=== PATIENT | female | born 1965 | race Caucasian/White ===

== ENCOUNTER → 2017-08-31 | Outpatient (CLI) | payer OTHER | END | disposition home or self-care (01) | LOC: YCFC.O 11:29 | PROVIDERS: ATTEND Nurse Practitioner Family | DX: E78.2 Mixed hyperlipidemia (principal); E11.9 Type 2 diabetes mellitus without complications; I10 Essential (primary) hypertension ==

== ENCOUNTER → 2017-09-11 | Outpatient (CLI) | payer OTHER ==
--- NOTE | 2017-09-12 06:23 | RAD ---
Procedure: XR HIP 2 OR MORE VIEWS Exam Date: 09/11/2017 12:00 AM CDT Ordering Provider: SAMI Cyr Clinical Indication: PAIN IN LEFT HIP Comparison: None FINDINGS: There is no fracture or dislocation. No significant degenerative changes. Visualized portions of the hemipelvis are normal. There is no lytic or sclerotic lesion. No suspicious calcifications. Impression: 1. Negative exam of the left hip. Electronically signed by: Prasanna Velásquez MD 09/12/2017 6:22 AM CDT
--- NOTE | 2017-09-12 08:42 | US ---
Procedure: Right upper quadrant ultrasound Exam Date: 09/11/2017 12:00 AM CDT Ordering Provider: SAMI Cyr Clinical Indication: HEPATOMEGALY Comparison: None Technique: Real-time ultrasonography was obtained over the right upper quadrant and apparel trimmings sales representative images were recorded. Findings: Innumerable gallstones are seen within the gallbladder lumen. There is no gallbladder wall thickening or pericholecystic fluid. Negative sonographic De Jesus sign. The gallbladder is normal in size and contour. The extrahepatic common duct is normal in size measuring five mm. The liver is normal in size and contour. There is normal echogenicity throughout the liver. There is no hepatic mass. There is no intrahepatic ductal dilatation. Visualized pancreas is unremarkable. There is no ascites. Evaluation of the right kidney demonstrates no hydronephrosis. Impression: Innumerable gallstones without evidence of acute cholecystitis. Otherwise, unremarkable right upper quadrant ultrasound. Electronically signed by: Prasanna Velásquez MD 09/12/2017 8:41 AM CDT
== END | disposition home or self-care (01) ==
LOC: YCFC.O 12:36
PROVIDERS: ATTEND Nurse Practitioner Family
DX: M25.552 Pain in left hip (principal); R94.5 Abnormal results of liver function studies

== ENCOUNTER 2017-09-21 06:22 | Day surgery (SDC) | payer OTHER ==
--- NOTE | 2017-09-19 10:25 | RAD ---
EXAM DESCRIPTION: Chest,2 Views CLINICAL HISTORY: surg 09/21/17 COMPARISON: July 28, 2016 TECHNIQUE: PA/lateral FINDINGS: The lungs are well expanded and clear. No infiltrates or effusions or masses are noted. The heart is normal in size and shape with no evidence of vascular congestion. The shereen and mediastinum demonstrate normal contours. The bony spine and chest wall is normal for age in appearance. IMPRESSION: Normal chest, two views Electronically signed by: Renan Penn MD 09/19/2017 10:24 AM CDT
[2017-09-21] MEDS ORDERED: SODIUM CHL 0.9% 100ML MINI-BAG 100 ML IVPB ONE (06:56)
[2017-09-21] MEDS ORDERED: ceFAZolin SODIUM 1 GM VIAL ONE (06:56)
[2017-09-21] MEDS ORDERED: LACTATED RINGERS 1,000 ML ONE (06:56)
[2017-09-21] MEDS ORDERED: raNITIdine HCL INJ 25 MG/ML VIAL ONE (07:00)
[2017-09-21] MEDS ORDERED: LABETALOL INJ 5 MG/ML VIAL ONE (07:00)
[2017-09-21] MEDS ORDERED: DEXAMETHASONE INJ 10 MG/ML VIAL ONE (07:00)
[2017-09-21] MEDS ORDERED: METOCLOPRAMIDE HCL INJ 10 MG/2 ML VIAL ONE (07:00)
[2017-09-21] MEDS ORDERED: LIDOCAINE 1% 10 ML VIAL INJ ONE (07:00)
[2017-09-21] MEDS ORDERED: PROPOFOL 200 MG/20 ML VIAL IV ONE (07:00)
[2017-09-21] MEDS ORDERED: HEPARIN SODIUM (PORCINE) 10,000 UNITS/ML VIAL ONE (07:45)
[2017-09-21] MEDS ORDERED: ROCURONIUM BROMIDE 10 MG/ML VIAL ONE (08:15)
[2017-09-21] MEDS ORDERED: fentaNYL CITRATE INJ 50 MCG/ML AMP ONE (08:15)
[2017-09-21] MEDS ORDERED: MIDAZOLAM INJ 2 MG/2 ML VIAL ONE (08:15)
[2017-09-21] MEDS ORDERED: HYDROmorphone HCL INJ 2 MG/ML VIAL ONE (08:18)
[2017-09-21] MEDS ORDERED: BUPIVACAINE 0.5% W/EPI 30 ML VIAL INJ ONE (08:20)
[2017-09-21] MEDS ORDERED: SODIUM CHLORIDE 0.9% 50 ML VIAL ONE (08:20)
[2017-09-21] MEDS ORDERED: SUGAMMADEX SODIUM 200 MG/2 ML VIAL IV ONE (09:53)
[2017-09-21] MEDS ORDERED: INSULIN LISPRO 100 UNITS/ML PEN SUBCU ONE (10:42)
--- NOTE | 2017-09-21 10:48 | OP ---
DATE OF PROCEDURE: 09/21/17 PREOPERATIVE DIAGNOSIS: 1. Symptomatic cholelithiasis. POSTOPERATIVE DIAGNOSIS: 1. Symptomatic cholelithiasis. 2. Chronic cholecystitis. 3. Fatty infiltration of the liver. PROCEDURE: 1. Laparoscopic cholecystectomy with intraoperative cholangiography. 2. Wedge biopsy, right lobe of the liver. SURGEON: Tank Bradshaw MD. FLEXOGRAPHIC PRESS HELPER: None. ANESTHESIA: Local infiltration of 0.25% Marcaine with epinephrine and general endotracheal anesthesia. INDICATION: The patient is a 52-year-old female with a fatty food intolerance, nausea, vomiting, bloating, sonographically diagnosed cholelithiasis. The patient was brought to the Surgical [facility] today for cholecystectomy after the risks, benefits and alternatives to the procedure were discussed and accepted. The family was informed intraoperatively that it appeared she had fatty infiltration of the liver and the wedge biopsy of the liver would be performed and they agreed with the procedure. FINDINGS: As noted, the liver appeared to have fatty infiltration. The gallbladder contained multiple stones and there were adhesions to the gallbladder from the omentum. Intraoperative cholangiography revealed free flow into the duodenum with no filling defects or strictures noted. There was noted to be a very short cystic duct, but plenty for clipping. No other pathology was identified. DESCRIPTION OF PROCEDURE: After adequate general endotracheal anesthesia was obtained, the patient was prepped and draped in the usual sterile manner. Surgical time-out was taken. The infraumbilical area was infiltrated with local anesthesia. A curvilinear incision was fashioned and carried down through the subcutaneous tissue to the midline fascia. Traction sutures were placed on either side of the midline. A small incision was made in the midline fascia and the peritoneum was opened bluntly. Martínez trocar was introduced under direct vision into the abdominal cavity and fixed in place with the 20 mL balloon. CO2 was then insufflated until a pressure of 12 mmHg was reached and the abdomen was tympanitic in all four quadrants. When this was done, the laparoscope was introduced. The abdomen was inspected with the previously noted findings. The upper abdominal ports were placed under direct vision in the usual manner. The gallbladder was grasped, retracted anteriorly and laterally. Adhesions to the gallbladder were taken down using electrocautery and blunt dissection. The neck of the gallbladder was retracted laterally. The triangle of Calot was then explored with the cystic duct and cystic artery identified and isolated. The cystic duct was hemoclipped once proximally. The cystic artery was hemoclipped twice proximally and once distally. A small incision was made in the cystic duct. The cholangiogram catheter was introduced through a separate stab wound in the right upper quadrant, introduced into the cystic duct and clipped in place. Cholangiograms were then taken using fluoroscopy which revealed free flow into the duodenum with no filling defects or strictures noted. When this was done, the cystic duct catheter was removed. The cystic duct was hemoclipped three times distally and divided between the hemoclips. The cystic artery was divided. A second vessel was identified, clipped and divided. The gallbladder was then dissected free from the gallbladder bed of the liver without difficulty and removed from the infraumbilical port site in the usual manner under direct vision. When this was done, a wedge biopsy of the right lobe of the liver was performed with sharp scissors. Hemostasis was obtained electrocautery turned up to 50. There was some difficulty obtaining hemostasis, but by the end of the case, it was quite good. The subhepatic space and subphrenic space were irrigated copiously with saline. The candy hepatis was inspected and no bleeding or bile leak was identified. The liver bed and the wedge biopsy site were both inspected and there was no bleeding there. The upper abdominal ports were removed under direct vision. There was bleeding from both the lateral ports and this was controlled with electrocautery. When hemostasis was noted to be adequate, the CO2, the laparoscope and the infraumbilical port were removed. The infraumbilical port site fascia was approximated with a single [id number] suture of 0 Vicryl. Subcutaneous tissue was irrigated with saline. Skin edges were approximated with 4-0 Vicryl subcuticular sutures, benzoin and Steri- Strips. Sterile dressings were applied. The patient was awakened and taken to the Recovery Room in good and stable condition. Estimated blood loss was approximately 75 mL. All sponge, needle and instrument counts were correct. #[id number] [facility]
[2017-09-21] MEDS ORDERED: SODIUM CHLORIDE 0.9% 250ML 250 ML ONE (11:04)
[2017-09-21] MEDS ORDERED: ONDANSETRON INJ 4 MG/2 ML VIAL ONE (11:43)
[2017-09-21 12:57] VITALS: O2SAT 97
[2017-09-21 13:09] VITALS: BP 164/79; TEMP 96
== END 2017-09-21 12:35 | disposition home or self-care (01) ==
LOC: AMB 06:22
PROVIDERS: ATTEND Surgery
DX: K80.10 Calculus of gallbladder with chronic cholecystitis without obstruction (principal); K76.0 Fatty (change of) liver, not elsewhere classified; E11.9 Type 2 diabetes mellitus without complications; E78.5 Hyperlipidemia, unspecified; I10 Essential (primary) hypertension; F32.9 Major depressive disorder, single episode, unspecified; E66.9 Obesity, unspecified; Z79.899 Other long term (current) drug therapy
CPT/HCPCS: 00790; 36415; 36416; 47379; 47563; 71020; 76000; 80053; 81001; 82948; 85025; 87086; 93005; A4216; J0690; J1100; J1170; J1644; J1815; J2250; J2405; J2765; J2780; J3010; J3490; J7050; J7120

== ENCOUNTER → 2017-10-04 | Outpatient (CLI) | payer OTHER ==
--- NOTE | 2017-10-05 13:09 | MAM ---
EXAM DESCRIPTION: Screening Mammogram,Bilateral: Digital Mammography CLINICAL HISTORY: 52 years Female SCREENING . No complaints. Remote family history of ovarian cancer. Postmenopausal. No HRT. COMPARISON: 2-D digital screening bilateral study 08/04/2013.. No prior reports available. TECHNIQUE: Bilateral CC and MLO projection full-field images, 2-D digital screening mammographic technique. CAD was utilized. FINDINGS: The breast parenchymal density pattern is: Heterogeneously dense breast tissue, which may obscure small masses. No skin thickening or nipple retraction bilateral solitary microcalcifications. Bilateral intramammary lymph nodes. Bilateral axillary lymph nodes. No focal, stellate mass or density, focal asymmetry , and no suspicious microcalcifications bilaterally. Stable mammograms compared to the prior study, taking into account differences in mammographic technique. IMPRESSION: BI-RADS CATEGORY: 2 - BENIGN FINDINGS. FOLLOW UP: Routine digital bilateral screening, one year interval from September 2017. Written communication explaining the IMPRESSION and follow-up, will be mailed to the patient and referring health care provider. According to the [employer], yearly mammograms are recommended starting at age 40 and continuing as long as a woman is in good health. Any breast change noted on a breast self-exam should be reported promptly to the patient's healthcare provider. Breast MRI is recommended for women with an approximately 20-25% or greater lifetime risk of breast cancer, including women with a strong family history of breast or ovarian cancer and women who have been treated for Hodgkin's disease. A negative mammographic report should not delay tissue diagnosis in patients with significant clinical history or physical findings. Extremely dense breast tissue limits the sensitivity of digital mammography. Electronically signed by: Hardeep Penny MD 10/05/2017 1:[address] [facility]
== END | disposition home or self-care (01) ==
LOC: MAMMO 14:18
PROVIDERS: ATTEND Nurse Practitioner Family
DX: Z12.31 Encounter for screening mammogram for malignant neoplasm of breast (principal)

== ENCOUNTER 2018-06-24 20:54 | Emergency (ER) | payer OTHER ==
--- NOTE | 2018-06-24 21:08 | ED.PDOC ---
History of Present Illness - General Chief Complaint: Eye Problems Time Seen by Provider: 06/24/18 21:03 Source: patient, Vital Signs reviewed Additional Information: 53 YEAR OLD DIABETIC PRESENTS WITH PAINFUL LEFT EYE SYMPTOMS STARTED YESTERDAY NO TRAUMA NO LOSS OF VISION SHE HAS TEARING PAIN IS MOSTLY ON THE EYE LIDS THAT IS VERY RED TENDER ON PALPATION GLOBE APPEARS NORMAL - History of Present Illness Timing/Duration: 24 hours Severity: mild Improving Factors: nothing Worsening Factors: nothing Associated Symptoms: denies symptoms Allergies/Adverse Reactions: Allergies NO KNOWN ALLERGY Allergy (Verified 06/24/18 21:09) Home Medications: Ambulatory Orders Cyclobenzaprine HCl [Flexeril] 10 mg PO TID PRN 09/19/17 Liraglutide [Victoza] 1.2 mg SC DAILY 09/19/17 Lisinopril 20 mg PO DAILY@0700 09/19/17 Meloxicam [Mobic] 7.5 mg PO BEDTIME 09/19/17 Clindamycin HCl [Cleocin] 300 mg PO Q6H #40 cap 06/24/18 Review of Systems - Review of Systems Constitutional: States: no symptoms reported EENTM: States: see HPI Respiratory: States: no symptoms reported Cardiology: States: no symptoms reported Gastrointestinal/Abdominal: States: no symptoms reported Genitourinary: States: no symptoms reported Past Medical History (General) - Patient Medical History Hx Congestive Heart Failure: No Hx Diabetes: Yes - Did not take Diabetes Medication on day prior to surg Hx MRSA: No Family Medical History - Family History Mother Family History: Unknown Physical Exam - Physical Exam General Appearance: Agitated, Alert, Comfortable Ears, Nose, Throat: hearing grossly normal, normal ENT inspection, normal pharynx, other - RIGHT EYE NORMAL LEFT EYE BOTH UPPER AND LOWER LIDS ARE RED ERYTHEMATOUS AND TENDER CONJUNCTIVA AND CORNEA NORMAL SEFERINO EXTERNAL OCCULAR MOVEMENTS ARE PAINFREE Neck: non-tender, full range of motion, supple Respiratory: chest non-tender, lungs clear, normal breath sounds, no respiratory distress Cardiovascular/Chest: normal peripheral pulses, regular rate, rhythm, no edema Departure - Departure Clinical Impression: Periorbital cellulitis of left eye Time of Disposition: 21:20 Disposition: Discharge to Home or Self Care Condition: Good Departure Forms: ED Discharge - Pt. Copy, Patient Portal Self Enrollment Instructions: DI for Eye Pain Referrals: Roberta Cyr NP [Primary Care Provider] - 1-2 Weeks Prescriptions: Clindamycin HCl [Cleocin] 300 mg PO Q6H #40 cap Home Medications: Ambulatory Orders Cyclobenzaprine HCl [Flexeril] 10 mg PO TID PRN 09/19/17 Liraglutide [Victoza] 1.2 mg SC DAILY 09/19/17 Lisinopril 20 mg PO DAILY@0700 09/19/17 Meloxicam [Mobic] 7.5 mg PO BEDTIME 09/19/17 Clindamycin HCl [Cleocin] 300 mg PO Q6H #40 cap 06/24/18 Additional Instructions: PLEASE FOLLOW UP WITH CP IN THE MORNING TO REEVALUATION
[2018-06-24 21:09] VITALS: BP 172/92; TEMP 98.4; O2SAT 96
[2018-06-24] MEDS ORDERED: cefTRIAXone SODIUM 1 GM VIAL IM ONE (21:12)
[2018-06-24] MEDS ORDERED: HYDROcodone 7.5MG/APAP 325MG 1 EA TAB PO ONE (21:13)
[2018-06-24] MEDS ORDERED: LIDOCAINE 1% 2 ML VIAL INJ ONE (21:21)
== END 2018-06-24 21:38 | disposition home or self-care (01) ==
LOC: ER 20:54
DX: L03.213 Periorbital cellulitis (principal); E11.9 Type 2 diabetes mellitus without complications; Z79.899 Other long term (current) drug therapy

== ENCOUNTER 2019-05-08 15:20 | Observation (INO) | payer OTHER ==
[2019-05-08] MEDS ORDERED: ONDANSETRON ODT 8 MG TAB SL ONE (15:45)
[2019-05-08] MEDS ORDERED: SODIUM CHLORIDE 0.9% 1000ML 1,000 ML IVS ONE (15:45)
--- NOTE | 2019-05-08 16:39 | RAD ---
EXAM DESCRIPTION: Abdomen Series CLINICAL HISTORY: nvd 5 days COMPARISON: 28 July 2016 TECHNIQUE: PA chest with supine and upright views of the abdomen] FINDINGS: The lungs are clear. The heart is normal size. There is an unremarkable bowel gas pattern. The abdomen is relatively gasless. There is no mass or calculus. Surgical clips are seen in the right upper quadrant. IMPRESSION: The abdomen is relatively gasless. The exam is otherwise unremarkable. Electronically signed by: Alfredo Braxton MD 05/08/2019 4:37 PM CDT
[2019-05-08] MEDS ORDERED: INSULIN, REG.(HUMAN) 100 U/ML VIAL IV ONE (16:53)
[2019-05-08] MEDS ORDERED: POTASSIUM CHLORIDE ELIXIR 20 MEQ/15 ML UD PO ONE (17:03)
[2019-05-08] MEDS ORDERED: SUCRALFATE 1 GM/10 ML 1 GM UD PO ONE (17:42)
[2019-05-08] MEDS ORDERED: ALUM & MAG HYDROX-SIMETHICONE 30 ML, LIDOCAINE VISCOUS 2% 15 ML PO ONE ×2 (17:42)
[2019-05-08] MEDS ORDERED: LIDOCAINE HCL 2% (MOUTH-THROAT) 15 ML UD ONE (17:56)
[2019-05-08] MEDS ORDERED: ALUM & MAG HYDROX-SIMETHICONE 30 ML UD ONE (17:56)
[2019-05-08] MEDS ORDERED: KCL 20 MEQ/NS 1,000 ML IVS ONE (18:31)
[2019-05-08] MEDS ORDERED: metroNIDAZOLE IV PREMIX 500MG 500 MG in PREMIX BAG 1 BAG IVPB ONE (19:16)
[2019-05-08] MEDS ORDERED: levoFLOXacin 500MG IV 500 MG in PREMIX BAG 1 BAG IVPB ONE (19:16)
[2019-05-08] MEDS ORDERED: FLUCONAZOLE 100 MG TAB PO ONE (19:30)
--- NOTE | 2019-05-08 19:33 | ED.PDOC ---
History of Present Illness - General Chief Complaint: Cardiovascular Problem Stated Complaint: abdominal/chest pain Time Seen by Provider: 05/08/19 15:39 Source: patient Exam Limitations: no limitations - History of Present Illness Initial Comments: the patient is a 54-year-old female presenting to emergency room secondary to nausea and vomiting and diarrhea for the last 4-5 days. he has had more than 10-12 episodes of diarrhea per day. She has had about same number of episodes of vomiting. She reports that she can hold down liquids for about 10- 20 minutes and then next follow-up. No history of any gastric ulcer. She had one blood-tinged stool yesterday. No melena. No veronique GI bleeds. The patient is a diabetic and has been getting poorer and poorer control. Since the throwing up she started to have some esophageal pain with swallowing. Some burning with swallowing. She does not have chest pain when she is not swallowing. She feels weak and tired. She is having muscle cramps. No real shortness of breath except with exertion. No history of immediately recent antibiotics. Timing/Duration: other - 5 days Severity: moderate Improving Factors: nothing Worsening Factors: eating Associated Symptoms: chest pain, loss of appetite, malaise, nausea/vomiting, shortness of breath, weakness Allergies/Adverse Reactions: Allergies NO KNOWN ALLERGY Allergy (Verified 05/08/19 16:51) Home Medications: Ambulatory Orders Cyclobenzaprine HCl [Flexeril] 10 mg PO TID PRN 09/19/17 Liraglutide [Victoza] 1.2 mg SC DAILY 09/19/17 Lisinopril 20 mg PO DAILY@0700 09/19/17 Meloxicam [Mobic] 7.5 mg PO BEDTIME 09/19/17 Clindamycin HCl [Cleocin] 300 mg PO Q6H #40 cap 06/24/18 Review of Systems - Review of Systems Constitutional: States: malaise, weakness EENTM: States: no symptoms reported Respiratory: States: short of breath - with exertion only Cardiology: States: chest pain - with swallowing only Gastrointestinal/Abdominal: States: diarrhea, nausea, vomiting Genitourinary: States: no symptoms reported Musculoskeletal: States: no symptoms reported Skin: States: no symptoms reported Neurological: States: no symptoms reported Endocrine: States: no symptoms reported All other Systems: No Change from Baseline Past Medical History (General) - Patient Medical History Hx Seizures: No Hx Stroke: No Hx Dementia: No Hx Asthma: No Hx of COPD: No Hx Cardiac Disorders: No Hx Congestive Heart Failure: No Hx Pacemaker: No Hx Hypertension: No Hx Thyroid Disease: No Hx Diabetes: Yes Hx Gastroesophageal Reflux: No Hx Renal Disease: No Hx Cancer: No Hx of HIV: No Hx Hepatitis C: No Hx MRSA: No Surgical History: cholecystectomy, other - Vaccination History Hx Tetanus, Diphtheria Vaccination: Yes Hx Influenza Vaccination: Yes - Social History Hx Tobacco Use: No Hx Alcohol Use: No Hx Substance Use: No Hx Substance Use Treatment: No Hx Depression: No Family Medical History - Family History Mother Family History: Unknown Physical Exam - Physical Exam General Appearance: Alert, Ill Appearing Eye Exam: bilateral normal Ears, Nose, Throat: hearing grossly normal, other - mucous membranes are fairly dry Neck: full range of motion, supple Respiratory: lungs clear, normal breath sounds, no respiratory distress, no accessory muscle use Cardiovascular/Chest: normal peripheral pulses, regular rate, rhythm, no edema Peripheral Pulses: radial,right: 2+, radial,left: 2+, dorsalis pedis,right: 2+, dorsalis pedis,left: 2+ Gastrointestinal/Abdominal: soft, other - mild diffuse discomfort to palpation. No point tenderness or rebound or peritoneal signs. Rectal Exam: deferred Back Exam: no CVA tenderness, no vertebral tenderness Extremity: non-tender, normal inspection, no pedal edema, no calf tenderness, normal capillary refill Neurologic: carton and can supply supervisor II-XII nml as tested, alert, normal mood/affect, oriented x 3 Skin Exam: pallor Comments: Vital Signs - 24 hr 05/08/19 05/08/19 15:27 15:40 Temperature 97.6 F Pulse Rate [ 92 H pulse ox] Respiratory 18 18 Rate Blood Pressure 158/99 [Right Arm] O2 Sat by Pulse 96 Oximetry Progress - Progress Progress: 05/08/19 19:36 the patient's a 54-year-old female with significant gastroenteritis with dehydration, hyponatremia, hypokalemia and significant esophagitis from the vomiting. She has responded fairly well to nausea medications. We have started acid reducing medications. The GI cocktail didn't help significantly with the burning. She is going to require further IV fluids. Blood sugars were markedly out of control upon arrival. They are improving. These will need to be followed. The patient is being started on ciprofloxacin and metronidazole for the gastroenteritis. Admit due to severity of symptoms. We are still trying to collect a C. difficile on the patient. the patient does have some T-wave inversions in her EKG. Her EKG should be repeated and cardiac enzymes should be repeated later in the hospital stay. Chest pain seems to be only with swallowin g at this point. 2 sets of cardiac enzymes are negative. Continue to follow. 05/08/19 19:38 - Results/Orders Results/Orders: 05/08/19 15:44 Telemetry .CONTINUOUS 05/08/19 15:45 EKG STAT 05/08/19 17:53 cdiff [CLOSTRIDIUM DIFFICILE AG/TOXIN] Stat 05/08/19 18:31 KCl 20 Meq/Ns [NS W/ KCL 20 meq/Liter] 1,000 ml IVS ONCE 05/08/19 19:16 levoFLOXacin 500MG IV [Levaquin 500MG IV] 500 mg Premix Bag 1 bag IVPB ONCE metroNIDAZOLE IV PREMIX 500MG [Flagyl IV Premix 500 MG/100 ML] 500 mg Premix Bag 1 bag IVPB ONCE 05/09/19 15:45 EKG STAT Laboratory Results - last 24 hr 05/08/19 05/08/19 05/08/19 15:51 15:51 15:51 WBC 8.2 RBC 4.72 Hgb 13.6 Hct 39.4 MCV 83.4 MCH 28.7 MCHC 34.4 RDW 12.5 Plt Count 292 MPV 8.7 Absolute Neuts (auto) 5.70 Absolute Lymphs (auto) 1.80 Absolute Monos (auto) 0.60 Absolute Eos (auto) 0.00 Absolute Basos (auto) 0.00 Neutrophils % 68.9 Lymphocytes % 22.3 Monocytes % 7.7 Eosinophils % 0.5 L Basophils % 0.6 Sodium 129 L Potassium 3.2 L Chloride 92 L Carbon Dioxide 24 Anion Gap 16.2 BUN 11 Creatinine 1.13 BUN/Creatinine Ratio 9.7 L POC Glucose Random Glucose 516 H* Serum Osmolality 281.4 Lactic Acid 1.3 Calcium 9.3 Magnesium 1.9 Total Bilirubin 0.6 AST 27 ALT 31 Alkaline Phosphatase 102 Creatine Kinase 51 CK-MB (CK-2) 1.4 CK-MB (CK-2) % Not Reportable Troponin I < 0.02 B-Natriuretic Peptide 8.8 Serum Total Protein 7.9 Albumin 3.8 Globulin 4.1 H Albumin/Globulin Ratio 0.9 L Amylase 20 L Lipase 36 TSH 2.26 Urine Color Urine Appearance Urine pH Ur Specific Laurel Urine Protein Urine Glucose (UA) Urine Ketones Urine Blood Urine Nitrite Urine Bilirubin Urine Urobilinogen Ur Leukocyte Esterase Urine RBC Urine WBC Ur Epithelial Cells Urine Bacteria Urine Yeast Urine HCG, Qual 05/08/19 05/08/19 05/08/19 16:05 16:05 18:00 WBC RBC Hgb Hct MCV MCH MCHC RDW Plt Count MPV Absolute Neuts (auto) Absolute Lymphs (auto) Absolute Monos (auto) Absolute Eos (auto) Absolute Basos (auto) Neutrophils % Lymphocytes % Monocytes % Eosinophils % Basophils % Sodium Potassium Chloride Carbon Dioxide Anion Gap BUN Creatinine BUN/Creatinine Ratio POC Glucose 241 H Random Glucose Serum Osmolality Lactic Acid Calcium Magnesium Total Bilirubin AST ALT Alkaline Phosphatase Creatine Kinase CK-MB (CK-2) CK-MB (CK-2) % Troponin I B-Natriuretic Peptide Serum Total Protein Albumin Globulin Albumin/Globulin Ratio Amylase Lipase TSH Urine Color Yellow Urine Appearance Sl cloudy Urine pH 6.5 Ur Specific Laurel 1.010 Urine Protein Negative Urine Glucose (UA) 500 H Urine Ketones Trace Urine Blood Negative Urine Nitrite Negative Urine Bilirubin Negative Urine Urobilinogen 0.2 Ur Leukocyte Esterase Negative Urine RBC 0 Urine WBC 0-1 Ur Epithelial Cells 3-5 Urine Bacteria Rare Urine Yeast Rare Urine HCG, Qual Negative 05/08/19 18:41 WBC RBC Hgb Hct MCV MCH MCHC RDW Plt Count MPV Absolute Neuts (auto) Absolute Lymphs (auto) Absolute Monos (auto) Absolute Eos (auto) Absolute Basos (auto) Neutrophils % Lymphocytes % Monocytes % Eosinophils % Basophils % Sodium Potassium Chloride Carbon Dioxide Anion Gap BUN Creatinine BUN/Creatinine Ratio POC Glucose Random Glucose Serum Osmolality Lactic Acid Calcium Magnesium Total Bilirubin AST ALT Alkaline Phosphatase Creatine Kinase 31 CK-MB (CK-2) 0.8 CK-MB (CK-2) % Not Reportable Troponin I < 0.02 B-Natriuretic Peptide Serum Total Protein Albumin Globulin Albumin/Globulin Ratio Amylase Lipase TSH Urine Color Urine Appearance Urine pH Ur Specific La[place] Urine Protein Urine Glucose (UA) Urine Ketones Urine Blood Urine Nitrite Urine Bilirubin Urine Urobilinogen Ur Leukocyte Esterase Urine RBC Urine WBC Ur Epithelial Cells Urine Bacteria Urine Yeast Urine HCG, Qual acute abdominal series shows no evidence of obstruction or perforation.obinna king are clear. Mild cardiomegaly. No obvious fluid overload. EKG shows normal sinus rhythm at 99 bpm. Normal axis. Mild T-wave inversions in 2-3 and aVF. Borderline R-wave progression. Normal QT interval. Departure - Departure Clinical Impression: Acute gastroenteritis, Dehydration, Esophagitis, Hypokalemia, Hyponatremia Disposition: Admit Patient Departure Forms: ED Discharge - Pt. Copy, Patient Portal Self Enrollment Referrals: CORBIN MAK [Primary Care Provider] - 1-2 Weeks Home Medications: Ambulatory Orders Cyclobenzaprine HCl [Flexeril] 10 mg PO TID PRN 09/19/17 Liraglutide [Victoza] 1.2 mg SC DAILY 09/19/17 Lisinopril 20 mg PO DAILY@0700 09/19/17 Meloxicam [Mobic] 7.5 mg PO BEDTIME 09/19/17 Clindamycin HCl [Cleocin] 300 mg PO Q6H #40 cap 06/24/18 Decision To Admit - Decistion To Admit Decision to Admit Reason: Medical Nature Decision to Admit Date: 05/08/19 Decision to Admit Time: 19:47
[2019-05-08] MEDS ORDERED: levoFLOXacin 500MG IV 100 ML IVPB ONE (19:49)
[2019-05-08] MEDS ORDERED: metroNIDAZOLE IV PREMIX 500MG 100 ML IVPB ONE (20:49)
--- NOTE | 2019-05-08 21:06 | HP ---
SUPERVISING PHYSICIAN: Tyson Patel M.D. CHIEF COMPLAINT: Abdominal and chest pain. HISTORY OF PRESENT ILLNESS: Ms. Howard is a 54 year-old female patient that initially presented to the Emergency Room due to some nausea and vomiting and diarrhea that she had been having over the last 5 days. She noted that she has had up to 12 episodes of diarrhea on a daily basis. She also endorses that she has had about half that amount in actual vomiting. On time of admission she noted she could not hold down any oral medications. She does not have a history of gastric ulcer. She denied any veronique blood or melena in her stools. She does have a history of diabetes and it has been poorly controlled. Since throwing up she started to have some esophageal pain with swallowing and some burning. She does not have chest pain when she is not swallowing, but she notes she feels weak and tired, and is having muscle cramps. She is denying any real shortness of breath on exertion and had not been on any antibiotics in the recent past. She also notes that her sister has had similar symptoms with diarrhea, nausea and vomiting for 5 days. She did note that they had gone to the river on a camping trip in the past week and associates probably some of those symptoms with eating some bologna or handling some of the animals while on the camping trip. Initial laboratory studies showed that she had a normal white count without differential shift. She was showing a blood sugar initially of 516 on admission with sodium 129 corrected for hypoglycemia up to 136. Potassium initially was 3.2. Anion gap was normal. Creatinine was 1.31. Lactic acid was normal at 1.3 and magnesium was also normal at 1.9. Liver functions were all showing within normal limits as well as lipase and amylase. Initial cardiac troponin on admission and 3 hours post admission to the E. R. were less than 0.02. Initial EKG in the E. R. showed normal sinus rhythm with no evidence of ST or T wave inversions without any evidence of acute ischemia or injury pattern. In the E. R., she was given a dose of Levaquin, Carafate, and a GI cocktail. She was showing to be stable with vital signs showing blood pressure initially of 158/99, heart rate 92, afebrile at 97.6, satting 96% on room air. Given that she is unable to hold any significant oral intake in and she is diabetic with hyperglycemia and ongoing dehydration secondary to diarrhea, the patient is going to be placed in observation for further treatment and evaluation. She was in stable condition at time of admission. PAST MEDICAL HISTORY: 1. Diabetes mellitus type 2 on oral therapy. 2. Peripheral vascular disease. 3. Hypertension. PAST SURGICAL HISTORY: 1. Cholecystectomy. 2. Tubal ligation. 3. Ablation therapy. HOME MEDICATIONS: Awaiting updated list and verification of medications in the electronic medical records. ALLERGIES: NO KNOWN DRUG ALLERGIES. FAMILY HISTORY: Mother at age 57 secondary to COPD. Father at 70 with Alzheimer's. She has a brother who had a CABG in his early 50s. She has 1 sister who has cancer, melanoma in her 40s. She has another brother who has hypertension and diabetes. She has 1 son who has lupus and a daughter that is healthy. SOCIAL HISTORY: The patient denies any alcohol, tobacco or illicit drug use. She is disabled secondary to depression. She is . Lives in [place]. REVIEW OF SYSTEMS: CONSTITUTIONAL: Positive for general malaise, weakness. Denies any fever or chills. HEENT: Negative for any sore throat, ear aches, nasal congestion, headaches, vision changes. RESPIRATORY: Positive for some shortness of breath on exertional effort only. Denies any coughing or wheezing. CARDIOVASCULAR: Positive for chest pains with swallowing but denies any palpitations, tachycardia or syncopal episodes. GASTROINTESTINAL: As noted in history of present illness. Positive for diarrhea, nausea and vomiting. GENITOURINARY: Denies any dysuria, hematuria or polyuria. SKIN: Denies any rashes, lesions or unexplained bleeding or easy bruising. NEUROLOGIC: Negative for headaches, vision changes, syncopal episodes, ataxia, seizures. PHYSICAL EXAMINATION: VITAL SIGNS: Temperature 97.6, pulse 92, blood pressure 158/89, respirations 18, satting 96% on room air. GENERAL: The patient is alert. She does appear to be not feeling well, but appears to be in no acute distress. HEENT: Tympanic membranes are clear bilaterally. Oropharynx was pink with dry mucosal membranes. Very poor dentition with no sores or lesions. NECK: Full range of motion. Supple, non-tender. No jugular venous distention noted. CHEST: Lungs were clear to auscultation without any rhonchi, wheezing or rales. CARDIOVASCULAR: Regular rate and rhythm without appreciable murmurs, gallops, or rubs. ABDOMEN: Soft with some mild diffuse discomfort on palpation, more so in the suprapubic area. No point tenderness. No rebound tenderness or peritoneal signs. Bowel sounds were active. BACK: Exam was without any CVA tenderness or vertebral tenderness EXTREMITIES: She moves all extremities ad louann. No clubbing, cyanosis or edema. NEUROLOGIC: Cranial nerves II-XII are grossly intact. Facial features were symmetrical. Extraocular movements are within normal limits. She was alert and oriented times three. LABORATORY STUDIES: White count showing to be within normal limits at 8,200 with hemoglobin 13.6, chronic 39.4, platelet count is down to 292,000. Differential shows to be without a left shift. Chemistry showed a low sodium at 129, potassium 3.2, chloride 92. Anion gap was normal at 16, BUN 11, creatinine 1.13. Glucose 516 initially and with a corrected sodium went to 136. Calcium 9.3, lactic acid 1.3, magnesium 1.9. Liver functions all within normal limits. Lipase and amylase both within normal limits. TSH normal at 2.26. Cardiac troponin both on initial presentation and at 3 hours was less than 0.02. Urinalysis just showed 500 glucose, otherwise within normal limits. Urine HCG was negative. MICROBIOLOGY: C-Difficile was pending at time of admission. RADIOLOGY: Abdominal x-ray per radiology interpretation showed relatively gasless. Exam was otherwise unremarkable. ASSESSMENT: 1. Chest pain with needing rule out more likely due to gastritis versus esophagitis from protracted nausea and vomiting. 2. Moderate dehydration secondary to persistent diarrhea. 3. Acute gastroenteritis, uncertain etiology, contributing to dehydration and persistent esophagitis or chest pains. 4. Electrolyte imbalance with hypokalemia and hyponatremia. 5. Diabetes mellitus type 2 on oral therapy, poorly controlled with hyperglycemia on admission secondary to dehydration and inability to take oral medications. 6. History of peripheral vascular disease. 7. History of hypertension. PLAN: The patient is going to be placed in observation for initiation of fluids. Will also put her on insulin sliding scale per protocol. Will go ahead and continue with IV boluses to rehydrate, then will follow that with maintenance fluids. She will have Zofran or Phenergan for nausea. Will do stool studies as appropriate as continues to have stools to include repeat C- Diff, leukocyte esterase and stool cultures of occult bloods. She will be on DVT prophylaxis per protocol. Anticipate her length of stay to be 1 to 2 days. Hopefully be able to discharge either later tomorrow or Sunday. Until she can hold adequate oral intake in and control her blood sugars, will continue to monitor until discharge. #[id number] [facility]
[2019-05-08] MEDS ORDERED: SODIUM CHLORIDE 0.9% (FLUSH) 10 ML SYG IV PRN (21:16)
[2019-05-08] MEDS ORDERED: ONDANSETRON INJ 4 MG/2 ML VIAL IV PRN (21:16)
[2019-05-08] MEDS ORDERED: DEXTROSE 50% 25 GM/50 ML SYG IV PRN (21:16)
[2019-05-08] MEDS ORDERED: GLUCAGON INJ 1 MG VIAL SUBCU PRN (21:16)
[2019-05-08] MEDS ORDERED: ALUM & MAG HYDROX-SIMETHICONE 30 ML UD PO PRN (21:16)
[2019-05-08] MEDS ORDERED: IV SET AND CAP CHANGE INJ INJ SCH (21:30)
[2019-05-08] MEDS ORDERED: INSULIN LISPRO 100 UNITS/ML PEN SUBCU ONE (22:19)
[2019-05-08] MEDS: INSULIN LISPRO 100 UNITS/ML PEN SUBCU SCH (22:23)
[2019-05-08] MEDS: KCL 20MEQ/0.45% NS 1,000 ML IVS PRN (22:45)
[2019-05-09] MEDS ORDERED: metroNIDAZOLE IV PREMIX 500MG 100 ML IVPB ONE ×4 (01:28→19:23)
[2019-05-09] MEDS: metroNIDAZOLE IV PREMIX 500MG 500 MG in PREMIX BAG 1 BAG IVPB SCH ×3 (02:11→18:10)
[2019-05-09] MEDS: SUCRALFATE 1 GM TAB PO SCH ×4 (06:05→20:57)
[2019-05-09] MEDS ORDERED: INSULIN LISPRO 100 UNITS/ML PEN SUBCU SCH (07:00)
[2019-05-09] MEDS: INSULIN LISPRO 100 UNITS/ML PEN SUBCU SCH ×4 (07:38→20:57)
[2019-05-09] MEDS: KCL 20MEQ/0.45% NS 1,000 ML IVS PRN ×2 (07:40→18:37)
[2019-05-09] MEDS: ACETAMINOPHEN 325 MG TAB PO PRN (10:43)
[2019-05-09] MEDS ORDERED: levoFLOXacin 500MG IV 100 ML IVPB ONE (19:23)
[2019-05-09] MEDS: levoFLOXacin 500MG IV 500 MG in PREMIX BAG 1 BAG IVPB SCH (19:40)
[2019-05-09] MEDS ORDERED: ENOXAPARIN SODIUM 40 MG/0.4 ML SYG SUBCU SCH (21:00)
[2019-05-10] MEDS ORDERED: SODIUM CHLORIDE 0.9% (FLUSH) 10 ML SYG IV ONE (01:03)
[2019-05-10] MEDS: metroNIDAZOLE IV PREMIX 500MG 500 MG in PREMIX BAG 1 BAG IVPB SCH ×2 (01:18→10:14)
[2019-05-10] MEDS: SUCRALFATE 1 GM TAB PO SCH ×2 (06:24→11:35)
[2019-05-10] MEDS: INSULIN LISPRO 100 UNITS/ML PEN SUBCU SCH ×2 (07:50→11:32)
--- NOTE | 2019-05-10 09:57 | PN ---
DATE: 05/09/19 SUPERVISING PHYSICIAN: Tyson Patel MD SUBJECTIVE: The patient is still having some nausea, not able to really day anymore than clear liquids. She is having terrible episodes of diarrhea and reporting she is still very weak. OBJECTIVE: VITAL SIGNS: Temperature 97.7, pulse 58, blood pressure 116/66, respirations 16, saturation 96% on room air. GENERAL: The patient is resting in bed. She appears to be in no acute distress, is alert. CHEST: Clear to auscultation bilaterally without rhonchi, rales, or wheezes. HEART: Regular rate and rhythm. ABDOMEN: Obese but soft, non-tender with positive bowel sounds. EXTREMITIES: No cyanosis, clubbing, or edema. NEUROLOGIC: She is alert and oriented x3. LABORATORY: Repeat today shows sodium 136, potassium 3.2, blood sugar range between 174 and 245. Calcium 8.3, liver functions all within normal limits. MICROBIOLOGY: Stools for C-difficile negative, both antigen and toxin. RADIOLOGY: No additional radiographic studies. ASSESSMENT: 1. Chest pain with no acute findings on EKG with negative troponin.felt to be likely due to gastritis versus esophagitis due to persistent nausea and vomiting. 2. Moderate dehydration secondary to persistent diarrhea, improved with [id number] but with patient still limited oral intake. 3. Acute gastroenteritis, uncertain etiology, likely viral with some dehydration and esophagitis.. 4. Electrolyte imbalance with hypokalemia and hyponatremia improved with fluids. 5. Diabetes mellitus type 2 on oral therapy, poorly controlled with hyperglycemia on admission secondary to dehydration and inability to take oral medications. 6. History of peripheral vascular disease. 7. History of hypertension. PLAN: We were hoping to be able to discharge her today but at this point, she is only taking clear liquids and still having several stools. Her blood sugars have been fairly well-controlled but still elevated and she is requiring fluids to maintain her hydration status. As she can, we will advance her diet today and will follow stool cultures and then additional studies, C. diff should she have more stool. She remains on DVT prophylaxis. Hopefully will be able to discharge tomorrow. Until we can transition her to outpatient management and have better control of her blood sugar, will continue to monitor and treat as needed. #[id number] [facility]
[2019-05-10] MEDS ORDERED: metroNIDAZOLE IV PREMIX 500MG 100 ML IVPB ONE (10:06)
[2019-05-10 10:07] VITALS: O2SAT 96
[2019-05-10] MEDS: ACETAMINOPHEN 325 MG TAB PO PRN (10:20)
[2019-05-10 10:30] VITALS: BP 141/71; TEMP 98.3
[2019-05-10] MEDS ORDERED: levoFLOXacin 500MG IV 100 ML IVPB ONE (11:14)
[2019-05-10] MEDS: levoFLOXacin 500MG IV 500 MG in PREMIX BAG 1 BAG IVPB SCH (11:18)
--- NOTE | 2019-05-12 08:20 | DS ---
SUPERVISING PHYSICIAN: Marylou Patel MD ADMISSION DIAGNOSIS: 1. Chest pain with needing rule out more likely due to gastritis versus esophagitis from protracted nausea and vomiting. 2. Moderate dehydration secondary to persistent diarrhea. 3. Acute gastroenteritis, uncertain etiology, contributing to dehydration and persistent esophagitis or chest pains. 4. Electrolyte imbalance with hypokalemia and hyponatremia. 5. Diabetes mellitus, type 2, on oral therapy, poorly controlled with hyperglycemia on admission secondary to dehydration and inability to take oral medications. 6. History of peripheral vascular disease. 7. History of hypertension. DISCHARGE DIAGNOSIS: 1. Chest pain with no acute findings on EKG with negative troponin probably due to gastritis or esophagitis from persistent nausea and vomiting with the patient being pain-free before discharge. 2. Moderate dehydration due to persistent nausea and vomiting, improved with fluids and resolved with the patient having good oral intake. 3. Acute gastroenteritis, uncertain etiology, likely viral with some dehydration and esophagitis with the patient not longer having any nausea, vomiting or diarrhea prior to discharge. 4. Electrolyte imbalance with hypokalemia and hyponatremia, improved with fluids, with numbers returning to baseline levels with replacement. 5. Diabetes mellitus, type 2, on oral therapy, poorly controlled with initial hyperglycemia on admission and the patient showing stable levels and taking oral medications and nutrition prior to discharge. 6. History of peripheral vascular disease. 7. History of hypertension. REASON FOR ADMISSION: Ms. Howard is a 54 year-old female patient that initially presented to the Emergency Room due to some nausea and vomiting and diarrhea that she had been having over the last 5 days. She noted that she has had up to 12 episodes of diarrhea on a daily basis. She also endorses that she has had about half that amount in actual vomiting. On time of admission she noted she could not hold down any oral medications. She does not have a history of gastric ulcer. She denied any veronique blood or melena in her stools. She does have a history of diabetes and it has been poorly controlled. Since throwing up she started to have some esophageal pain with swallowing and some burning. She does not have chest pain when she is not swallowing, but she notes she feels weak and tired, and is having muscle cramps. She is denying any real shortness of breath on exertion and had not been on any antibiotics in the recent past. She also notes that her sister has had similar symptoms with diarrhea, nausea and vomiting for 5 days. She did note that they had gone to the river on a camping trip in the past week and associates probably some of those symptoms with eating some bologna or handling some of the animals while on the camping trip. Initial laboratory studies showed that she had a normal white count without differential shift. She was showing a blood sugar initially of 516 on admission with sodium 129 corrected for hypoglycemia up to 136. Potassium initially was 3.2. Anion gap was normal. Creatinine was 1.31. Lactic acid was normal at 1.3 and magnesium was also normal at 1.9. Liver functions were all showing within normal limits as well as lipase and amylase. Initial cardiac troponin on admission and 3 hours post admission to the E. R. were less than 0.02. Initial EKG in the E. R. showed normal sinus rhythm with no evidence of ST or T wave inversions without any evidence of acute ischemia or injury pattern. In the E. R., she was given a dose of Levaquin, Carafate, and a GI cocktail. She was showing to be stable with vital signs showing blood pressure initially of 158/99, heart rate 92, afebrile at 97.6, satting 96% on room air. Given that she is unable to hold any significant oral intake in and she is diabetic with hyperglycemia and ongoing dehydration secondary to diarrhea, the patient is going to be placed in observation for further treatment and evaluation. She was in stable condition at time of admission. LABORATORY: CBC on admission showed white count 8,200. At discharge, it was 7,500. Hemoglobin at discharge 11.9, hematocrit 35.0. Differential was without left shift. Platelet count normal at 253. Chemistries on admission showed sodium 129, but glucose was 516 and correcting for that, it was 136. Potassium 3.2, chloride 92, anion normal at 16, carbon dioxide normal at 24, BUN 11, creatinine 1.13, lactic acid 1.3, magnesium 1.9, calcium 9.3. Liver functions all within normal limits. She had three sets of troponins, all less than 0.02. CPKs were normal. Her last CPK was 36. TSH normal at 2.26. Amylase and lipase were both normal. Prior to discharge, her electrolytes had normalized except for just a mildly low potassium of 3.2. Liver functions remained within normal limits. Urinalysis just showed 500 glucose. Urine HCG was negative on admission. MICROBIOLOGY: Stool for Clostridioides difficile A and B both negative. RADIOLOGY: Abdominal x-ray in the Emergency Room prior to admission per radiologic interpretation showed abdomen was relatively gaseous, otherwise unremarkable. 12-lead EKG with normal sinus rhythm with no ST or T wave elevations to indicate ischemia or acute injury pattern. HOSPITAL COURSE: Ms. Howard was admitted as noted above for persistent nausea, vomiting, diarrhea and some chest pain associated with gastritis versus esophagitis. She was treated in the Emergency Room with GI cocktail and did have good results with treatment initially. She had persistent diarrhea and was also dehydrated and had initial glucose over 500. She was initiated on treatment with insulin in the Emergency Room. She was placed on the Floor and started on insulin sliding scale. She was adequately hydrated and was taking oral intake without any complications and advanced her diet to an ADA diet prior to discharge. She was no longer reporting any continued diarrhea and no chest pains. She had no other complaints. EKGs showed no acute changes. The patient was started on antibiotics with Levaquin and Flagyl and showed good response to treatment. Otherwise, she was showing good clinical response to treatment and was felt stable enough to continue with outpatient management. PLAN: Ms. Howard was discharged on 05/10/19 with instructions to followup with Caesar Vital, her doctor in [place]. She was to resume normal activities as tolerated, but advance slowly. She was to resume her home medications as directed. She was encouraged to push fluids for dehydration and to avoid extreme heat. She was given warnings to returns to the hospital shoulder she have any worsening of her symptoms or other concerning symptoms. Diet at discharge was diabetic diet. Activity as tolerated. MEDICATIONS ON DISCHARGE: 1. Levaquin 500 mg daily, #4. 2. Flagyl 500 mg q.8h., #12. CONDITION AT DISCHARGE: Stable and improved. DISPOSITION: The patient was discharged to family and friends. #[id number] [facility]
== END 2019-05-10 12:28 | disposition home or self-care (01) ==
LOC: ER 15:20 → MS 21:05
PROVIDERS: ADMIT Nurse Practitioner Family; ATTEND Nurse Practitioner Family
DX: E86.0 Dehydration (principal); K52.9 Noninfective gastroenteritis and colitis, unspecified; R07.89 Other chest pain; E87.6 Hypokalemia; E87.1 Hypo-osmolality and hyponatremia; E11.65 Type 2 diabetes mellitus with hyperglycemia; E11.51 Type 2 diabetes mellitus with diabetic peripheral angiopathy without gangrene; I10 Essential (primary) hypertension; F32.9 Major depressive disorder, single episode, unspecified; Z79.4 Long term (current) use of insulin; Z79.1 Long term (current) use of non-steroidal anti-inflammatories (NSAID); Z79.899 Other long term (current) drug therapy; Z90.49 Acquired absence of other specified parts of digestive tract
CPT/HCPCS: 96361; 96366 ×3; 96367; 96365; 96376 ×2; 96372 ×3; J1956 ×3; J3490 ×6; J7030; J1650; J3480 ×4; J1815; 80048 ×2; 82553 ×3; 80053 ×2; 82948 ×8; 81025; 36415 ×5; 82150; 81001; 85025 ×2; 82550 ×3; 83690; 83735 ×2; 84443; 84484 ×3; 83880; 36416 ×7; 87324; 83605; 74019; 94760 ×4; 99285; 93005; G0378; 87449

== ENCOUNTER → 2019-08-21 | Outpatient (CLI) | payer OTHER ==
--- NOTE | 2019-08-26 13:46 | MAM ---
EXAM DESCRIPTION: 3D Screening BILATERAL : Digital Mammography. CLINICAL HISTORY: 54 years Female ANNUAL SCREENING .. No complaints or personal history of breast cancer. Remote family history of breast cancer and ovarian cancer. Menarche age 10. Childbirth. Postmenopausal. No HRT. Lifetime risk of developing breast cancer (Tyrer-Cuzick model)(%): 5.3. COMPARISON: 2-D digital screening bilateral mammography 10/04/2017. TECHNIQUE: Bilateral CC and MLO projection full-field images, digital tomosynthesis mammographic technique. Bilateral digital 2-D full-field MLO images. CAD not available for tomosynthesis or 2-D images. FINDINGS: The breast parenchymal density pattern is: Scattered areas of fibroglandular density. No skin thickening or nipple retraction. Nodular-type fibroglandular tissues. Bilateral scattered solitary microcalcifications. Small left axillary lymph nodes. No new focal, stellate mass or density, focal asymmetry , and no suspicious microcalcifications bilaterally. Stable mammograms compared to prior study. Taking into account, differences in mammographic technique. IMPRESSION: Benign exam. BIRAD CATEGORY: 2 BENIGN FINDINGS. RECOMMENDATIONS: FOLLOW UP: Routine digital bilateral mammographic screening, one year interval from August 2019. Written communication explaining the IMPRESSION and follow-up, will be mailed to the patient and referring health care provider. According to the [employer], yearly mammograms are recommended starting at age 40 and continuing as long as a woman is in good health. Any breast change noted on a breast self-exam should be reported promptly to the patient's healthcare provider. Breast MRI is recommended for women with an approximately 20-25% or greater lifetime risk of breast cancer, including women with a strong family history of breast or ovarian cancer and women who have been treated for Hodgkin's disease. A negative mammographic report should not delay tissue diagnosis in patients with significant clinical history or physical findings. Extremely dense breast tissue limits the sensitivity of digital mammography. Electronically signed by: Hardeep Penny MD 08/26/2019 1:44 PM CDT
== END ==
LOC: MAMMO 10:30
PROVIDERS: ATTEND Emergency Medicine
DX: Z12.31 Encounter for screening mammogram for malignant neoplasm of breast (principal)

== ENCOUNTER 2020-01-09 16:53 | Emergency (ER) | payer OTHER ==
--- NOTE | 2020-01-09 17:19 | ED.PDOC ---
History of Present Illness - General Chief Complaint: Dental/Mouth Stated Complaint: dental pain,facial swelling Time Seen by Provider: 01/09/20 17:17 Source: patient Exam Limitations: no limitations - History of Present Illness Initial Comments: 54 yo F who presents for lower R tooth pain onset two days ago, worsening since, now with swelling noted to her face. Pt is concerned because she is a diabetic. She has not taken any of her medications today 2/2 pain. Has felt hot and cold but has not taken her temperature at home. Was unable to get in with the dentist today. Did not take anything for pain today. Denies cough, congestion, CP, SOB, abd pain, n/v/d, urinary sx. Allergies/Adverse Reactions: Allergies NO KNOWN ALLERGY Allergy (Verified 05/08/19 21:48) Home Medications: Ambulatory Orders RX: Lisinopril 40 mg PO DAILY 09/19/17 RX: Gabapentin 300 mg PO BID 05/08/19 Chlorhexidine Mouth Rinse [Peridex] 0.12 % MT BID #1 bttl 01/09/20 Insulin Glargine [Lantus Solostar] 30 unit SC BEDTIME 01/09/20 Liraglutide [Victoza] 1.6 ml SC DAILY 01/09/20 RX: Carvedilol 3.125 mg PO BID 01/09/20 RX: Clindamycin HCl [Cleocin] 300 mg PO Q8H 10 Days capsule 01/09/20 RX: Naproxen [EC-Naproxen] 500 mg PO Q6H PRN #12 tab 01/09/20 Review of Systems - Review of Systems Constitutional: States: other - +feeling hot and cold. Denies: diaphoresis EENTM: States: other - +dental pain. Denies: ear pain, ear discharge, nose pa in, nose congestion, throat pain, throat swelling Respiratory: Denies: cough, short of breath Cardiology: Denies: chest pain, palpitations Gastrointestinal/Abdominal: Denies: abdominal pain, nausea, vomiting Genitourinary: Denies: dysuria, frequency, hematuria Musculoskeletal: Denies: back pain, neck pain Skin: Denies: lesions, rash Neurological: Denies: headache, numbness, weakness Endocrine: Denies: increased thirst, increased urine Past Medical History (General) - Patient Medical History Hx Seizures: No Hx Stroke: No Hx Dementia: No Hx Asthma: No Hx of COPD: No Hx Cardiac Disorders: Yes Hx Congestive Heart Failure: No Hx Pacemaker: No Hx Hypertension: Yes Hx Thyroid Disease: No Hx Diabetes: Yes Hx Gastroesophageal Reflux: No Hx Renal Disease: No Hx Cancer: No Hx of HIV: No Hx Hepatitis C: No Hx MRSA: No Surgical History: cholecystectomy - Vaccination History Hx Tetanus, Diphtheria Vaccination: Yes Hx Influenza Vaccination: Yes - Social History Hx Tobacco Use: No Hx Alcohol Use: No Hx Substance Use: No Hx Substance Use Treatment: No Hx Depression: No Hx Physical Abuse: No Hx Emotional Abuse: No Family Medical History - Family History Father Living Status: Hx Family;Other: alzheimer's Mother Family History: Unknown Age (years): 57 Living Status: Hx Family Hypertension: Yes Hx Family;Other: pna - smoker Physical Exam - Physical Exam General Appearance: Alert, Comfortable, No apparent distress, Well Developed, Well Nourished Eye Exam: bilateral normal Throat Exam: other - poor dentition, multiple dental caries, no dental abscess, inflammation of lower gums Neck: non-tender, full range of motion, supple Cardiovascular/Respiratory: no M/R/G, normal peripheral pulses, no JVD, normal breath sounds, no respiratory distress, other - mild tachycardia, appears partly from pain and partly from anxiety Abdominal Exam: non-tender, no organomegaly, no hernia Neurologic: no motor/sensory deficits, alert Skin Exam: normal color, warm/dry Progress - Progress Progress: 01/09/20 18:58 I have explained and reviewed all results with the pt. Pt is feeling improved, resting comfortably. I explained that emergent conditions may arise and to return to the ER for new, worsening, or any persistent conditions. I've explained the importance of f/u for recheck. All questions and concerns addressed at this time. Pt understands and agrees with plan. Pt well appearing, NAD, is stable for discharge. Debbie Hood MD Emergency Medicine Physician Billing Number [id number] - Results/Orders Results/Orders: 01/09/20 18:08 Clindamycin IV 600Mg [Cleocin IV 600mg] 600 mg Premix Bag 1 bag IVPB ONCE Sodium Chloride 0.9% 1000ML [Ns 1000 ml] 1,000 ml IVS ONCE Laboratory Results - last 24 hr 01/09/20 01/09/20 01/09/20 17:15 18:28 18:28 WBC 9.6 RBC 4.66 Hgb 13.1 Hct 38.7 MCV 83.1 MCH 28.0 MCHC 33.7 RDW 12.9 Plt Count 241 MPV 7.7 Absolute Neuts (auto) 8.00 H Absolute Lymphs (auto) 1.10 Absolute Monos (auto) 0.40 Absolute Eos (auto) 0.00 Absolute Basos (auto) 0.10 Neutrophils % 83.4 H Lymphocytes % 11.9 L Monocytes % 4.0 Eosinophils % 0.1 L Basophils % 0.6 Sodium 133 L Potassium 3.7 Chloride 101 Carbon Dioxide 23 Anion Gap 12.7 BUN 11 Creatinine 0.82 BUN/Creatinine Ratio 13.4 POC Glucose 188 H Random Glucose 213 H Serum Osmolality 272.1 L Calcium 9.2 Vital Signs - 24 hr 01/09/20 01/09/20 01/09/20 17:08 18:06 18:27 Temperature 100.6 F H 100.3 F H Pulse Rate [ 108 H 102 H Left Ulnar] Respiratory 20 20 Rate Blood Pressure 192/86 147/87 [Left Arm] O2 Sat by Pulse 96 98 Oximetry 01/09/20 19:10 Temperature 98.7 F Pulse Rate [ 84 Left Ulnar] Respiratory 16 Rate Blood Pressure 133/65 [Left Arm] O2 Sat by Pulse 98 Oximetry Departure - Departure Clinical Impression: Dental caries Time of Disposition: 18:55 Disposition: Discharge to Home or Self Care Health Concerns: condition: stable Departure Forms: ED Discharge - Pt. Copy, Patient Portal Self Enrollment Instructions: DI for Dental Pain Referrals: CORBIN MAK [Primary Care Provider] - 1-2 Weeks Prescriptions: Chlorhexidine Mouth Rinse [Peridex] 0.12 % MT BID #1 bttl RX: Clindamycin HCl [Cleocin] 300 mg PO Q8H 10 Days capsule RX: Naproxen [EC-Naproxen] 500 mg PO Q6H PRN #12 tab PRN Reason: Pain Home Medications: Ambulatory Orders RX: Lisinopril 40 mg PO DAILY 09/19/17 RX: Gabapentin 300 mg PO BID 05/08/19 Chlorhexidine Mouth Rinse [Peridex] 0.12 % MT BID #1 bttl 01/09/20 Insulin Glargine [Lantus Solostar] 30 unit SC BEDTIME 01/09/20 Liraglutide [Victoza] 1.6 ml SC DAILY 01/09/20 RX: Carvedilol 3.125 mg PO BID 01/09/20 RX: Clindamycin HCl [Cleocin] 300 mg PO Q8H 10 Days capsule 01/09/20 RX: Naproxen [EC-Naproxen] 500 mg PO Q6H PRN #12 tab 01/09/20 Additional Instructions: Follow up: [facility], As needed, if symptoms worsen Your dentist, Make appointment, three days, for follow up
[2020-01-09] MEDS ORDERED: KETOROLAC TROMETHAMINE INJ 60 MG/2 ML VIAL IM ONE (17:21)
[2020-01-09 18:07] VITALS: O2SAT 98
[2020-01-09] MEDS ORDERED: CLINDAMYCIN IV 600MG 600 MG in PREMIX BAG 1 BAG IVPB ONE (18:08)
[2020-01-09] MEDS ORDERED: SODIUM CHLORIDE 0.9% 1000ML 1,000 ML IVS ONE (18:08)
[2020-01-09] MEDS ORDERED: ACETAMINOPHEN 500 MG TAB PO ONE (18:08)
[2020-01-09] MEDS ORDERED: CLINDAMYCIN IV 600MG 50 ML IVPB ONE (18:12)
[2020-01-09 19:11] VITALS: BP 133/65; TEMP 98.7
== END 2020-01-09 19:11 | disposition home or self-care (01) ==
LOC: ER 16:53
DX: K02.9 Dental caries, unspecified (principal); E11.9 Type 2 diabetes mellitus without complications; I10 Essential (primary) hypertension; I51.9 Heart disease, unspecified; Z79.899 Other long term (current) drug therapy; Z79.4 Long term (current) use of insulin
CPT/HCPCS: 36415; 36416; 80048; 82948; 85025; J1885; J3490; J7030